=== PATIENT | female | born 1940 | race Caucasian/White ===

== ENCOUNTER → 2016-08-16 | Outpatient (CLI) | payer MEDICARE ==
--- NOTE | 2016-08-17 10:14 | RADIOLOGY REPORT PS360 ---
CT CHEST W/O CONTRAST HISTORY: Chronic obstructive pulmonary disease, increasing shortness of breath, COPD, ORDERING PHYSICIAN: BERNICE CISNEROS MD PATIENT AGE: 76 years TECHNIQUE: Helical acquisition obtainedwithout. Axial, sagittal, and coronal reformatted images are generated and reviewed. COMPARISON: None FINDINGS: Incidental note is made of a 1.5 cm partially calcified right thyroid nodule. Scattered small nodes are present in the mediastinum some which are calcified. No mediastinal or hilar mass evident. Normal heart size. No evidence of aortic aneurysm although there is some tortuosity of the thoracic aorta. There are severe panlobular emphysematous changes with scattered areas of fibrosis. No lobar consolidation or collapse. Calcified granulomas present in the right lower lobe. No suspicious pulmonary nodules. No central bronchial lesions evident. No effusions or infiltrates.. Upper abdominal images show bilateral renal cortical cysts. There are degenerative changes in the thoracic spine with levoscoliosis of the lower thoracic spine and dextroscoliosis of the upper thoracic spine. IMPRESSION: 1. Severe panlobular emphysematous changes with scattered areas of fibrosis. 2. No acute finding. 3. 1.5 cm right thyroid nodule with peripheral calcification representing an incidental thyroid nodule which is 1.5 cm. Suggest ultrasound for further evaluation.
== END ==
LOC: RAD 12:41
DX: R06.09 Other forms of dyspnea (principal); J44.9 Chronic obstructive pulmonary disease, unspecified